=== PATIENT | female | born 1970 | race African-American/Black ===

== ENCOUNTER 2019-11-02 17:18 | Inpatient (IN) | payer MEDICAID, SELFPAY ==
[2019-11-02] VITALS (15 sets, daily range): BP systolic 149–266; BP diastolic 77–134; PULSE 57–94; RESP 10–23; TEMP 36.6–36.8; O2SAT 97–100; BMI 27.1
--- NOTE | ~2019-11-02 | US_ITS ---
EXAMINATION: US right upper quadrant DATE: 11/04/2019 14:18 INDICATION: Pancreatitis TECHNIQUE: Multiple grayscale and Doppler ultrasound images of the abdomen were obtained. COMPARISON: CT dated 11/02/2019 FINDINGS: The pancreatic head and body are normal in appearance. The pancreatic tail is not visualized. Liver has normal echogenicity and contour, with a smooth surface. No liver lesion identified. No intrahepat ic biliary duct dilation suspected. Portal venous flow was seen in the hepatopetal, normal direction and has normal Doppler waveform. The visualized proximal inferior vena cava is normal. The gallbladde r is normal in appearance. There is no cholelithiasis. The common bile duct measures 3 mm, which is normal. Sonographic Nathan sign was reported as negative by the fourth mate although patient was repo rtedly on analgesics which could decrease sensitivity. IMPRESSION: 1. Normal right upper quadrant ultrasound. Reviewed, dictated and finalized at location A.
--- NOTE | ~2019-11-02 | CT_ITS ---
EXAMINATION: CT abdomen pelvis w con DATE: 11/02/2019 19:14 INDICATION: Epigastric abdominal pain. TECHNIQUE: Computed tomography (CT) of the abdomen and pelvis was performed with 100 mL Omnipaque 350 intravenous contrast. Automated exposure control and iterative reconstruction technique were employe d. The dose-length product was 307.06 mGy-cm. COMPARISON: None. FINDINGS: The visualized portions of the lung bases demonstrate mild atelectasis. No pleural effusion . The heart size is normal. No pericardial effusion. The liver, gallbladder, spleen, adrenal glands, and kidneys are normal. There is fat stranding adjacent to the body of the pancreas, consistent with acute interstitial pancreatitis. There are no dilated loops of bowel. The appendix is normal. There i s a mildly enlarged gastrohepatic lymph node, likely reactive. There is no free intraperitoneal fluid . There is mild thoracolumbar spondylosis. IMPRESSION: 1. Acute interstitial pancreatitis. 2. Mild gastrohepatic lymphadenopathy, likely reactive. Reviewed, dictated and finalized at location A.
--- NOTE | 2019-11-02 18:11 | ED.ABDPAIN ---
HPI - Abdominal Pain General Chief Complaint: Abdominal Pain Stated Complaint: epigastric pain Time Seen by Provider: 11/02/19 17:31 Source: patient Mode of arrival: ambulatory Limitations: no limitations History of Present Illness HPI narrative: 49-year-old female with hypertension She reports that last Monday she ate a day old salad and has had abdominal pain since that time The abdominal pain is been severe enough that it caused her to stop taking all of her blood pressure medication and to take Tums and Pepcid AC instead She has had nausea but no vomiting no diarrhea and does tend to be constipated She does not have any urinary symptoms And there is no fever On arrival here her blood pressure is pretty high she is denying chest pain shortness of breath headache neurologic symptoms She said she does not smoke and rarely drinks Pain is aggravated every time she eats and radiates into her back MD elicited complaint: abdominal pain Onset (ago): day(s) Pain Consistency: constant Severity: moderate Quality: aching Radiation: epigastric Migration to: no migration Exacerbating factors: eating Relieving factors: nothing Associated symptoms: nausea Related Data Home Medications Medication Instructions Recorded Confirmed amlodipine 10 mg PO DAILY 11/02/19 atorvastatin 40 mg PO HS 11/02/19 calcium carbonate [Tums] 300 mg PO BID 11/02/19 famotidine [Pepcid AC] 10 mg PO DAILY 11/02/19 losartan 25 mg PO DAILY 11/02/19 metformin 500 mg PO BID 11/02/19 ondansetron 4 mg PO Q6H PRN 11/02/19 sitagliptin [Januvia] 100 mg PO DAILY 11/02/19 triamterene-hydrochlorothiazid 1 cap PO DAILY 11/02/19 Allergies Allergy/AdvReac Type Severity Reaction Status Date / Time latex Allergy Rash Verified 11/02/19 17:26 lisinopril Allergy Swelling Verified 11/02/19 17:26 Review of Systems Review of Systems: All systems reviewed & are unremarkable except as noted in HPI and below Constitutional: Constitutional: Denies chills, Denies fatigue, Denies fever(s), Denies headache(s) and Denies night sweats Eyes: Eyes: Denies change in vision, Denies loss of vision and Denies other visual disturbances ENT: Denies headache(s), Denies hoarseness, Denies epistaxis, Denies nasal congestion and Denies sore throat Cardiovascular: Cardiovascular: Denies chest pain, Denies leg edema, Denies palpitations and Denies dyspnea Respiratory: Respiratory: Denies cough, Denies dyspnea and Denies wheezing Gastrointestinal: Gastrointestinal: Reports no additional gastrointestinal complaints Genitourinary: Genitourinary: Denies hematuria, Denies urinary frequency and Denies dysuria Musculoskeletal: Musculoskeletal: Denies abnormal gait, Denies deformity, Denies joint swelling, Denies muscle weakness and Denies numbness Integumentary/Breasts: Skin/Breast: Denies rash, Denies unusual bruising and Denies wounds Neurologic: Denies abnormal gait, Denies headache(s), Denies focal weakness, Denies loss of vision and Denies numbness Psychiatric: Psychiatric: Reports no additional psychiatric complaints Endocrine: Endocrine: Denies fatigue and Denies palpitations Hematologic/Lymphatic: Hematologic/Lymphatic: Denies easy bleeding and Denies easy bruising Allergic/Immunologic: Allergic/Immunologic: Denies wheezing PMFSH Social History Social History Gender identity (if verbalized by the patient): Female Exam Const: General: healthy appearing, no acute distress and well developed Nutritional Appearance: well nourished Orientation/consciousness: patient oriented x3 (alert) and Other orientation findings (Alert) Limitations: no limitations HENMT: Head: normocephalic and atraumatic Ears: external ears normal General nose exam: No nasal discharge present Face and sinus: face symmetric Mouth: Yes tongue normal and Yes moist mucous membranes Throat: other (No exudate, no erythema) Eyes: Conjunctivae: conjunctivae normal Sclera: sclerae normal
--- NOTE | 2019-11-02 18:34 | ECG_ITS ---
Measurements Intervals [place] Rate: 55 P: 11 NE: 143 QRS: 52 QRSD: 75 T: 139 QT: 452 QTc: 433 Interpretive Statements SINUS BRADYCARDIA LEFT VENTRICULAR HYPERTROPHY AND ST-T CHANGE ST-T WAVE ABNORMALITY IN HIGH LATERAL LEADS- CONSIDER ISCHEMIA ABNORMAL ECG Electronically Signed On 11-02-2019 20:52:34 CDT by Christian Mercedes D.O.
[2019-11-02] MEDS: LACTATED RINGERS 1,000 ML 999 ML IV CONT ×2 (18:38→20:52)
[2019-11-02] MEDS: BELLADONNA ALK/PHENOB ELIX 10 ML, MAG HYDROX/ALUMINUM HYD/SIMETH 30 ML, LIDOCAINE HCL 2... PO (18:38)
[2019-11-02 18:40] LABS: Basophils Absolute Auto 0.1 K/mm3 (0.0-0.1); Basophils Percent Auto 0.5 % (0.2-1.2); Eosinophils Absolute Auto 0.5 K/mm3 (0-0.3); Eosinophils Percent Auto 3.9 % (0-4.4); Hematocrit 50.2 % (37.0-47.0); Hemoglobin 15.4 g/dL (12.0-15.0); Immature Granulocyte Absolute 0.02 K/mm3 (0.00-0.031); Immature Granulocyte Percent A 0.2 % (0-0.5); Lymphocytes Absolute Auto 5.43 K/mm3 (0.9-3.2); Lymphocytes Percent Auto 46.2 % (18.3-44.2); Mean Corpuscular HGB Conc 30.7 g/dl (32-36); Mean Corpuscular Volume 71.6 fl (80-100); Mean Platelet Volume 10.4 fl (7.4-10.4); Monocytes Absolute Auto 0.6 K/mm3 (0.1-0.6); Monocytes Percent Auto 4.7 % (2.6-8.5); Neutrophils Absolute Auto 5.2 K/mm3 (1.3-6.7); Neutrophils Percent Auto 44.5 % (45.5-73.1); Platelet Count Result 304 k/mm3 (150-375); Red Blood Count 7.01 M/mm3 (4.2-5.4); Red Cell Distribution Width 17.1 % (11.5-14.5); White Blood Count 11.8 K/mm3 (4.5-10.0)
[2019-11-02 18:52] LABS: Add Urine Microscopic? YES; Appearance Urine Clear (Clear); Bilirubin Urine Negative (Negative); Blood Urine Negative (Negative); Color Urine Yellow (Yellow); Glucose Urine UA Negative (Negative); Ketones Urine Negative (Negative); Leukocyte Esterase Ur Negative LEU/UL (Negative); Mucus Urine Rare /lpf; Nitrate Urine Negative (Negative); Protein Urine 1+ mg/dL (Negative); Specific Grav Ur 1.015 (1.001-1.035); Squamous Epithelial Cell Urine Occasional /hpf (Few); Urobilinogen Urine Negative mg/dL (<2.0); WBC Urine 0-3 /hpf
[2019-11-02 18:53] LABS: Alanine Aminotransferase 23 U/L (4-35); Albumin Level 4.4 g/dL (3.5-5.1); Alkaline Phosphatase 143 U/L (38-126); Anion Gap 7 mmol/L (8-16); Aspartate Amino Transferase 21 U/L (14-36); Bilirubin,Total 0.5 mg/dL (0.2-1.3); Blood Urea Nitrogen 14 mg/dL (7-17); Calcium 9.4 mg/dL (8.4-10.2); Carbon Dioxide 28 mmol/L (22-30); Chloride 104 mmol/L (98-107); Estimated CRCL calculation 65 ml/min; Estimated Glomerular Filt Rate > 60; Glucose 201 mg/dL (65-105); Lipase 664 U/L (23-300); Potassium 3.9 mmol/L (3.4-5.0); Sodium 139 mmol/L (137-145)
--- NOTE | 2019-11-02 18:56 | PC.NURSE ---
DISCUSSED LABETOLOL ORDER W/ ERP RYLEE DUE TO PT RESTING HR IN THE 50-60'S. RYLEE STATES THAT HE IS MORE CONCERNED WITH THE PRESSURE AND WANTS THE LABETOLOL GIVEN REGARDLESS.
[2019-11-02] MEDS: LABETALOL HCL INJ 100 MG/20 ML VIAL 20 MG IV PUSH ×2 (18:57→19:45)
[2019-11-02 19:05] LABS: Troponin I < 0.012 ng/mL (0.000-0.034)
--- NOTE | 2019-11-02 19:12 | PC.NURSE ---
PT IN RADIOLOGY, BEDSIDE REPORT TO RN CAT AT THIS TIME, SHE HAS ASSUMED PT CARE.
--- NOTE | 2019-11-02 19:13 | PC.NURSE ---
Assumed care of patient at this time. Patient just getting back from radiology. Patient report received from MODESTO Marcelino.
[2019-11-02] MEDS: LOSARTAN POTASSIUM 50 MG TABLET PO (19:18)
[2019-11-02] MEDS: hydrALAZINE HCL 20 MG/ML VIAL 10 MG IV PUSH (19:31)
[2019-11-02] MEDS: PANTOPRAZOLE SODIUM IV 40 MG VIAL IV PUSH (19:31)
--- NOTE | 2019-11-02 19:46 | PC.NURSE ---
vORB PER ERP give 20mg of labetalol IVP.
[2019-11-02] MEDS: niCARdipine 20 MG/200 ML 20 MG/200 ML BAG 50 MG IV CONT (20:52)
--- NOTE | 2019-11-02 20:55 | PM.IMHP ---
H&P: HPI History of Present Illness Date/Time: 11/02/19 20:55 Chief complaint: severe hypertension, acute pancreatitis Narrative: This is a pleasant 49 year old female with known prediabetes who has been on Januvia for the past 8 months and presented to the hospital with a complaint of epigastric pain and nausea for about 1 week now. She describes last eating food yesterday which led to her immediately getting nauseated and vomiting. Her epigastric pain radiates towards her back. She denies any fever, chills, cough, chest pain, dysuria, hematuria, diarrhea, or rectal bleeding. The patient has not been able to take her home antihypertensives. She was evaluated in the ER and found to have interstitial pancreatitis. She also was found to have severely elevated blood pressure and despite several bolus doses of IV antihypertensives has continued to have elevated blood pressure. Currently she denies any blurry vision, shortness of breath, chest pain, nausea, or dizziness. Demonstrator Knitting, Dr. Peterson has been consulted. Review of Systems Review of Systems: All systems reviewed & are unremarkable except as noted in HPI and below PMFSH Past Medical History Medical History (Updated 11/03/19 @ 05:52 by Werner Ashton MD) HTN (hypertension) with goal to be determined Prediabetes Surgical History Surgical History (Updated 11/02/19 @ 21:03 by Werner Ashton MD) Previous section Family History Family History (Updated 11/02/19 @ 23:22 by Evelyn Borrero RN) Father Hypertension Cerebrovascular accident Diabetes mellitus Mother Diabetes mellitus Social History Social History Years smoked: 32 Smoking status: Current every day smoker Tobacco type: cigarettes Alcohol intake: never Substance use: never Substance use type: does not use Gender identity (if verbalized by the patient): Female Spiritual care concerns: No Meds Home Medications and Allergies Home Medications Medication Instructions Recorded Confirmed Type amlodipine 10 mg PO DAILY 11/02/19 11/02/19 History atorvastatin 40 mg PO HS 11/02/19 11/02/19 History calcium carbonate [Tums] 300 mg PO BID PRN 11/02/19 11/02/19 History famotidine [Pepcid AC] 10 mg PO DAILY 11/02/19 11/02/19 History losartan 25 mg PO DAILY 11/02/19 11/02/19 History metformin 500 mg PO BID 11/02/19 11/02/19 History ondansetron 4 mg PO Q6H PRN 11/02/19 11/02/19 History sitagliptin [Januvia] 100 mg PO DAILY 11/02/19 11/02/19 History triamterene-hydrochlorothiazid 1 cap PO DAILY 11/02/19 11/02/19 History Allergies Allergy/AdvReac Type Severity Reaction Status Date / Time latex Allergy Rash Verified 11/02/19 17:26 lisinopril Allergy Swelling Verified 11/02/19 17:26 Vital Signs Vital Signs - 24 hr 11/02/19 17:21 11/02/19 18:41 11/02/19 19:01 Temperature 36.8 C Pulse Rate 65 57 L 62 Respiratory Rate 18 10 L 17 Blood Pressure 244/118 H 266/134 H 234/114 H Pulse Oximetry 100 100 100 11/02/19 20:44 11/02/19 20:52 Temperature Pulse Rate 80 72 Respiratory Rate 20 Blood Pressure 219/102 H 215/99 H Pulse Oximetry 97 Exam Const: General: cooperative, no acute distress, alert and awake Nutritional Appearance: well nourished Orientation/consciousness: patient oriented x3 HENMT: Head: normal to inspection General nose exam: Normal external nose present Face and sinus: normal facial exam Mouth: Yes Normal oral and palatal mucosa present and Yes oropharynx normal Eyes: Pupils: Equal, round and reactive pupils present EOM: EOMs intact bilaterally Neck: Neck: supple and no JVD Thyroid: thyroid normal Lymphatic: lymphadenopathy not noted Resp: Effort & Inspection: normal respiratory effort Auscultation: clear to auscultation bilaterally Cardio: Rate: regular rate Rhythm: regular rhythm Heart sounds: no murmurs GI: Inspection: normal to inspection GI Palp: Yes abdominal tenderness (epigastric pain w/ palpation++
--- NOTE | 2019-11-02 21:45 | ADMGEN ---
This patient, Zeyad Mcneil, was admitted to Intensive Care Unit-7. Patient/family oriented to hospital policies and general routines including ID bracelet, bed and alarms, visiting hours, pain management, procedures, bathroom and other care routines, personal items, smoking policy, room service/diet, and visiting hours. Valuables list has been completed. Information on how to activate the Rapid Response Team has been discussed. Patient/Family are encouraged to report perceived risks to care and to ask questions if they do not understand what they are told or what they should do.
[2019-11-02] MEDS: FAMOTIDINE 20 MG/2 ML VIAL IV PUSH (22:26)
[2019-11-02] MEDS: MORPHINE SULFATE 2 MG/ML INJ IV PUSH (22:27)
[2019-11-02] MEDS: SODIUM CHLORIDE 0.9% IV 1,000 ML 125 ML IV CONT (23:02)
[2019-11-03] VITALS (21 sets, daily range): BP systolic 148–179; BP diastolic 73–96; PULSE 57–74; RESP 12–24; TEMP 36.5–37.1; O2SAT 96–100
[2019-11-03 04:13] LABS: Glucose Point of Care 245 (65-105)
[2019-11-03] MEDS: INSULIN ASPART (*BKC) 100 UNITS/ML SUB-Q ×2 (04:18→16:57)
[2019-11-03 04:20] LABS: Hemoglobin A1C 8.9 % (<5.7)
[2019-11-03 04:33] LABS: Basophils Absolute Auto 0.1 K/mm3 (0.0-0.1); Basophils Percent Auto 0.4 % (0.2-1.2); Eosinophils Absolute Auto 0.3 K/mm3 (0-0.3); Eosinophils Percent Auto 2.4 % (0-4.4); Hematocrit 43.7 % (37.0-47.0); Hemoglobin 13.7 g/dL (12.0-15.0); Immature Granulocyte Absolute 0.04 K/mm3 (0.00-0.031); Immature Granulocyte Percent A 0.3 % (0-0.5); Lymphocytes Absolute Auto 5.98 K/mm3 (0.9-3.2); Lymphocytes Percent Auto 44.5 % (18.3-44.2); Mean Corpuscular HGB Conc 31.4 g/dl (32-36); Mean Corpuscular Hemoglobin 22.3 pg (26-34); Mean Corpuscular Volume 71.2 fl (80-100); Mean Platelet Volume 10.5 fl (7.4-10.4); Monocytes Absolute Auto 0.6 K/mm3 (0.1-0.6); Monocytes Percent Auto 4.3 % (2.6-8.5); Neutrophils Absolute Auto 6.5 K/mm3 (1.3-6.7); Neutrophils Percent Auto 48.1 % (45.5-73.1); Platelet Count Result 267 k/mm3 (150-375); Red Blood Count 6.14 M/mm3 (4.2-5.4); Red Cell Distribution Width 14.9 % (11.5-14.5); White Blood Count 13.4 K/mm3 (4.5-10.0)
[2019-11-03 04:46] LABS: Anion Gap 7 mmol/L (8-16); Blood Urea Nitrogen 8 mg/dL (7-17); Calcium 8.8 mg/dL (8.4-10.2); Carbon Dioxide 28 mmol/L (22-30); Chloride 102 mmol/L (98-107); Estimated CRCL calculation 80 ml/min; Estimated Glomerular Filt Rate > 60; Glucose 236 mg/dL (65-105); Lipase 510 U/L (23-300); Potassium 3.5 mmol/L (3.4-5.0); Sodium 137 mmol/L (137-145)
[2019-11-03 05:00] LABS: Atypical Lymphocytes Present; Platelet Estimate Adequate (Adequate)
[2019-11-03] MEDS: SODIUM CHLORIDE 0.9% IV 1,000 ML 125 ML IV CONT ×2 (07:43→21:57)
[2019-11-03 08:16] LABS: Cholesterol 183 mg/dL (0-200); HDL Direct 29 mg/dL; Triglycerides 147 mg/dL (<150)
[2019-11-03 08:27] LABS: LDL Cholesterol Direct 108 mg/dL
[2019-11-03] MEDS: amLODIPine BESYLATE 5 MG TABLET 10 MG PO (08:29)
[2019-11-03] MEDS: SODIUM CHLORIDE 0.9% IV 1,000 ML 999 ML IV CONT (08:30)
[2019-11-03] MEDS: FAMOTIDINE 20 MG/2 ML VIAL IV PUSH ×2 (08:32→20:06)
--- NOTE | 2019-11-03 09:09 | WPDCNINT ---
Assessment and Plan Assessment and plan (1) Hypertensive urgency: Code(s): I16.0 - Hypertensive urgency Status: Acute Assessment and Plan: patient was admitted for hypertensive emergency, presented with systolic blood pressures greater than 260s. Started on nicardipine infusion. - Currently off nicardipine infusion. - Patient has been restarted on amlodipine, if blood pressures remain elevated will add losartan. Will hold Maxzide for now - patient stated that when she takes all 3 medications she passed out a couple of months ago and was in the ER and was instructed only to take the amlodipine. (2) Acute pancreatitis: Qualifiers: Acute pancreatitis complication: no infection or necrosis Pancreatitis type: unspecified pancreatitis type Qualified Code(s): K85.90 - Acute pancreatitis without necrosis or infection, unspecified Code(s): K85.90 - Acute pancreatitis without necrosis or infection, unspecified Status: Acute Assessment and Plan: Acute pancreatitis likely related to Januvia, patient does not drink any alcohol - check triglycerides - will give additional IV fluid bolus - may start clear liquid diet (3) Diabetes mellitus: Qualifiers: Diabetes mellitus type: type 2 Diabetes mellitus penitentiary insulin use: without groundskeeper use Diabetes mellitus complication status: without complication Qualified Code(s): E11.9 - Type 2 diabetes mellitus without complications Code(s): E11.9 - Type 2 diabetes mellitus without complications Status: Chronic Assessment and Plan: hemoglobin A1c 8.9, - hold Januvia for now - continue Accu-Cheks and sliding scale insulin Additional Plan DVT prophylaxis: SCDs stress ulcer prophylaxis: famotidine discussed with patient and updated her with her condition and plan of care. Code status: Full code critical care time spent: 42 minutes Due to a high probability of clinically significant, life threatening deterioration, the patient required my highest level of preparedness to intervene emergently and I personally spent this critical care time directly and personally managing the patient. This critical care time included obtaining a history; examining the patient; pulse oximetry; ordering and review of studies; arranging urgent treatment with development of a management plan; evaluation of patient's response to treatment; frequent reassessment; and discussions with other providers. It was exclusive of separately billable procedures and treating other patients and teaching time. Please see Assessment and Plan section and the rest of the note for further information on patient assessment and treatment [facility] Consult Note Consult date: 11/03/19 Time Seen: 07:04 Reason for consult: acute pancreatitis, hypertensive urgency HPI: Zeyad Mcneil is a 49 year old female with past medical history of hypertension, diabetes on Januvia presented the ED with complains of epigastric pain few for 1 week. in the ER patient's blood pressures were 266/134. Patient received hydralazine in the ER but was also started on nicardipine infusion. CT scan of the abdomen and pelvis showed acute pancreatitis. Patient was given 2 L IV fluids in the ER and transfer the ICU for further management 11/20/2019: Patient seen and examined the ICU this morning. Upon further questioning patient has been stating that she has not been taking her blood pressure medications except amlodipine the last 2 months as she was in the ER which he took all the medications and passed out. She was told not to take all the medications for her blood pressures. She stated she has been having epigastric pain upon eating for the last 1 week. Patient has had decreased p.o. intake Due to nausea. She did eat on the day of admission and was able to keep down her food without nausea vomiting. hemoglobin A1c was 8.9 this admission, lipase of 510 ( 664 on admission). [place]
[2019-11-03] MEDS: LOSARTAN POTASSIUM 25 MG TABLET PO (10:21)
[2019-11-03 11:12] LABS: Glucose Point of Care 162 (65-105)
[2019-11-03] MEDS: TRIAMTERENE 37.5 MG/HCTZ 25 MG (MAXZIDE) TABLET 1 TAB PO (12:34)
[2019-11-03] MEDS: POTASSIUM CHLORIDE 20 MEQ TABLET 40 MEQ PO (15:20)
[2019-11-03] MEDS: hydrALAZINE HCL 20 MG/ML VIAL 10 MG IV PUSH (16:09)
--- NOTE | 2019-11-03 16:16 | PM.IMPN ---
Progress Note: A&P Assessment and Plan (1) Hypertensive urgency: Code(s): I16.0 - Hypertensive urgency Status: Acute Assessment and Plan: secondary to stopping her home antihypertensives due to acute pancreatitis. initially patient was on nicardipine drip but with lessening pain and increasing bowel sounds was placed on her oral antihypertensives. Calcium channel damian, ARB, and diuretic (2) Acute pancreatitis: Qualifiers: Acute pancreatitis complication: no infection or necrosis Pancreatitis type: unspecified pancreatitis type Qualified Code(s): K85.90 - Acute pancreatitis without necrosis or infection, unspecified Code(s): K85.90 - Acute pancreatitis without necrosis or infection, unspecified Status: Acute Assessment and Plan: may be secondary to Januvia use. patient tolerating clear liquids now. Lipid panel okay and will get sonogram right upper quadrant in a.m. (3) Dehydration: Code(s): E86.0 - Dehydration Status: Acute Assessment and Plan: Continue IV hydration K 3.5 sober replace (4) Diabetes mellitus: Qualifiers: Diabetes mellitus type: type 2 Diabetes mellitus medical terminologist insulin use: without long-term use Diabetes mellitus complication status: without complication Qualified Code(s): E11.9 - Type 2 diabetes mellitus without complications Code(s): E11.9 - Type 2 diabetes mellitus without complications Status: Chronic Assessment and Plan: accuchecks, sliding scale. A1c 8.9 and will continue metformin on discharge but hold Januvia (5) DVT prophylaxis: Code(s): Z29.9 - Encounter for prophylactic measures, unspecified Status: Acute Assessment and Plan: Lovenox Subjective Date/time seen: 11/03/19 16:16 Interval history: date of visit 11/02. 49-year-old hypertensive type 2 diabetic presented with nausea vomiting abdominal pain found to have pancreatitis on CT scan. She had not been taking her antihypertensive medication for about 1 week and pressure was markedly elevated. this a.m. she feels much better with minimal pain. Exam Narrative: Exam Narrative: Blood pressure 156/82 pulse 66 regular afebrile pupil equal reactive to light sclera anicteric lungs clear CV regular rate rhythm abdomen soft minimal epigastric tenderness bowel sounds present but decrease extremities without edema distal pulses are 2+ neuro alert pleasant cooperative no focal deficit Objective Data Vital Signs Vital Signs: Vital Signs - 24 hr 11/02/19 17:21 11/02/19 18:41 11/02/19 19:01 Temperature 36.8 C Pulse Rate 65 57 L 62 Respiratory Rate 18 10 L 17 Blood Pressure 244/118 H 266/134 H 234/114 H Pulse Oximetry 100 100 100 11/02/19 20:44 11/02/19 20:47 11/02/19 20:52 Temperature 36.6 C Pulse Rate 80 94 72 Respiratory Rate 20 22 H Blood Pressure 219/102 H 177/95 H 215/99 H Pulse Oximetry 97 99 11/02/19 21:11 11/02/19 21:31 11/02/19 21:50 Temperature 36.6 C Pulse Rate 94 88 88 Respiratory Rate 19 20 Blood Pressure 164/78 H 177/95 H Pulse Oximetry 100 100 11/02/19 22:00 11/02/19 22:24 11/02/19 22:31 Temperature 36.7 C Pulse Rate 76 90 76 Respiratory Rate 19 18 Blood Pressure 167/94 H 171/87 H Pulse Oximetry 100 100 11/02/19 22:46 11/02/19 23:31 11/02/19 23:46 Temperature Pulse Rate 76 69 69 Respiratory Rate 23 H 19 18 Blood Pressure 149/77 H 174/91 H 167/90 H Pulse Oximetry 100 100 99 11/03/19 00:00 11/03/19 01:00 11/03/19 01:01 Temperature Pulse Rate 72 64 67 Respiratory Rate 15 Blood Pressure 155/73 H 159/78 H 159/78 H Pulse Oximetry 96 11/03/19 02:00 11/03/19 04:00 11/03/19 04:01 Temperature 36.7 C Pulse Rate 59 L 68 66 Respiratory Rate 16 17 Blood Pressure 165/84 H 158/85 H Pulse Oximetry 100 99 11/03/19 04:31 11/03/19 05:32 11/03/19 06:00 Temperature Pulse Rate 59 L 64 59 L Respiratory Rate 17 15 Blood
--- NOTE | 2019-11-03 16:21 | PC.NURSE ---
This patient, Zeyad Mcneil, was transferred to [ [address] [place] [address]] on 11/03/19 at 1621. Personal belongings sent with patient. Belongings list checked and signed with receiving [ tila christopher,dentures phone belongings bag]. Report given to [rober bryant ]. Appropriate documentation sent with patient.
--- NOTE | 2019-11-03 16:26 | PC.NURSE ---
This patient, Zeyad Mcneil, was received from IMU on 11/03/19 at 1626. Personal belongings list checked and signed. Patient/family oriented to unit policies and routines
[2019-11-03 16:39] LABS: Glucose Point of Care 327 (65-105)
[2019-11-03] MEDS: ENOXAPARIN 40 MG/0.4 ML SYRINGE SUB-Q (20:07)
[2019-11-03 22:12] LABS: Glucose Point of Care 106 (65-105)
[2019-11-04 02:46] VITALS: BP 152/87; PULSE 77; RESP 12; TEMP 36.3; O2SAT 97
[2019-11-04 04:48] VITALS: BP 156/88; PULSE 74; RESP 12; TEMP 36.7; O2SAT 99
[2019-11-04 05:26] LABS: Glucose Point of Care 171 (65-105)
[2019-11-04] MEDS: SODIUM CHLORIDE 0.9% IV 1,000 ML 125 ML IV CONT (06:21)
[2019-11-04 07:05] LABS: Alanine Aminotransferase 16 U/L (4-35); Albumin Level 3.9 g/dL (3.5-5.1); Alkaline Phosphatase 107 U/L (38-126); Anion Gap 6 mmol/L (8-16); Aspartate Amino Transferase 21 U/L (14-36); Bilirubin,Total 0.7 mg/dL (0.2-1.3); Blood Urea Nitrogen 8 mg/dL (7-17); Calcium 8.8 mg/dL (8.4-10.2); Carbon Dioxide 23 mmol/L (22-30); Chloride 108 mmol/L (98-107); Estimated CRCL calculation 71 ml/min; Estimated Glomerular Filt Rate > 60; Glucose 167 mg/dL (65-105); Lipase 154 U/L (23-300); Magnesium 1.7 mg/dL (1.6-2.3); Phosphorus 3.4 mg/dL (2.5-4.5); Potassium 4.1 mmol/L (3.4-5.0); Sodium 137 mmol/L (137-145)
[2019-11-04 07:52] LABS: Basophils Absolute Auto 0.1 K/mm3 (0.0-0.1); Basophils Percent Auto 0.5 % (0.2-1.2); Eosinophils Absolute Auto 0.4 K/mm3 (0-0.3); Eosinophils Percent Auto 4.3 % (0-4.4); Hematocrit 44.6 % (37.0-47.0); Hemoglobin 13.8 g/dL (12.0-15.0); Immature Granulocyte Absolute 0.02 K/mm3 (0.00-0.031); Immature Granulocyte Percent A 0.2 % (0-0.5); Lymphocytes Absolute Auto 4.62 K/mm3 (0.9-3.2); Lymphocytes Percent Auto 50.5 % (18.3-44.2); Mean Corpuscular HGB Conc 30.9 g/dl (32-36); Mean Corpuscular Hemoglobin 22.4 pg (26-34); Mean Corpuscular Volume 72.3 fl (80-100); Mean Platelet Volume 10.4 fl (7.4-10.4); Monocytes Absolute Auto 0.4 K/mm3 (0.1-0.6); Monocytes Percent Auto 4.8 % (2.6-8.5); Neutrophils Absolute Auto 3.6 K/mm3 (1.3-6.7); Neutrophils Percent Auto 39.7 % (45.5-73.1); Platelet Count Result 256 k/mm3 (150-375); Red Blood Count 6.17 M/mm3 (4.2-5.4); Red Cell Distribution Width 15.3 % (11.5-14.5); White Blood Count 9.2 K/mm3 (4.5-10.0)
[2019-11-04] MEDS: LOSARTAN POTASSIUM 25 MG TABLET PO ×2 (08:23→16:19)
[2019-11-04] MEDS: FAMOTIDINE 20 MG/2 ML VIAL IV PUSH (08:23)
[2019-11-04] MEDS: amLODIPine BESYLATE 5 MG TABLET 10 MG PO (08:23)
[2019-11-04] MEDS: TRIAMTERENE 37.5 MG/HCTZ 25 MG (MAXZIDE) TABLET 1 TAB PO (08:23)
[2019-11-04 08:24] LABS: Platelet Estimate Adequate (Adequate); Target Cells 1+ (NORMAL)
[2019-11-04] MEDS: SODIUM CHLORIDE 0.9% IV 1,000 ML 50 ML IV CONT (08:28)
[2019-11-04 08:32] LABS: Glucose Point of Care 188 (65-105)
[2019-11-04 08:49] VITALS: BP 176/97; PULSE 60; RESP 18; TEMP 36.1; O2SAT 100
[2019-11-04 12:00] VITALS: BP 176/94; PULSE 60; RESP 18; TEMP 36; O2SAT 100
[2019-11-04] MEDS: hydrALAZINE HCL 20 MG/ML VIAL 10 MG IV PUSH (12:21)
[2019-11-04 12:34] LABS: Glucose Point of Care 133 (65-105)
[2019-11-04 15:10] VITALS: BP 185/89
[2019-11-04 16:39] LABS: Glucose Point of Care 233 (65-105)
--- NOTE | 2019-11-07 08:41 | PM.DS ---
DS: Admitting Diagnosis Admitting Diagnosis Admitting Diagnosis: severe hypertension, acute pancreatitis DS: Discharge Diagnosis Discharge Diagnosis (1) Hypertensive urgency: Code(s): I16.0 - Hypertensive urgency Status: Acute Assessment and Plan: secondary to stopping her home antihypertensives due to acute pancreatitis. initially patient was on nicardipine drip but with lessening pain and increasing bowel sounds was placed on her oral antihypertensives. Calcium channel damian, ARB, and diuretic. Still some elevated at discharge and will follow up with primary soon. increased losartan to 50mg qd (2) Acute pancreatitis: Qualifiers: Acute pancreatitis complication: no infection or necrosis Pancreatitis type: unspecified pancreatitis type Qualified Code(s): K85.90 - Acute pancreatitis without necrosis or infection, unspecified Code(s): K85.90 - Acute pancreatitis without necrosis or infection, unspecified Status: Acute Assessment and Plan: may be secondary to Januvia use.. Lipid panel okay and sonogram right upper quadrant no cholelethiasis She will hold Januvia. (3) Dehydration: Code(s): E86.0 - Dehydration Status: Acute Assessment and Plan: Hydrated aggressively until taking fluids well (4) Diabetes mellitus: Qualifiers: Diabetes mellitus type: type 2 Diabetes mellitus fpc insulin use: without terminal superintendent use Diabetes mellitus complication status: without complication Qualified Code(s): E11.9 - Type 2 diabetes mellitus without complications Code(s): E11.9 - Type 2 diabetes mellitus without complications Status: Chronic Assessment and Plan: accuchecks, sliding scale. A1c 8.9 and will continue metformin on discharge and increase to 1000 mb bid, but hold Januvia DS: Summary Hospital Course Hospital Course: 49 year hypertensive diabetic admitted with abdominal pain and found to have pancreatitis. She was not taking her oral antihypertensives for several days. With hydration lipase fell on was 153 rehab discharge. She was taking a regular diet without any pain. Blood pressure still elevated some and her losartan was increased to 50 daily. Pancreatitis felt secondary to Januvia and it was held and the metformin increased to 1000 mg b.i.d.. Follow-up with primary care within the next 2 weeks Time Spent with Patient Time attestation: Total time spent providing and/or coordinating discharge services:35 minutes Exam Narrative: Exam Narrative: condition on discharge blood pressure 176/92 pulse 60 saturating 95% on room air afebrile lungs clear CV regular rate rhythm abdomen soft nontender no masses extremities without edema distal pulses are 2+ she was up about taking a regular diet with no abdominal pain feeling much better and able to be discharged Discharge Plan Discharge Attending physician on discharge: Roberto Gandara Consulting providers: Jeramie Díaz ; Kenn Peterson Discharging Clinician: Roberto Gandara Patient Disposition: Home, Self-Care Activity: as tolerated Diet: diabetic and low sodium Patient Instructions: Antibiotic Form, Enoxaparin (By injection), How to Stop Smoking (DC), Pancreatitis (DC), Chronic Hypertension (DC), Hypertensive Crisis (DC), Ultrasound (GEN) Stand Alone Forms: General Discharge Information, Work/School Release IP Follow-up/Referrals: PHYSICIAN,RN PARALEGAL [Primary Care Provider] - 3 Weeks Discharge Medications: New losartan 25 mg Tablet 50 mg PO DAILY Qty: 30 RF: 0 metformin 1,000 mg tablet 1,000 mg PO BID Qty: 60 RF: 0 Continued atorvastatin 40 mg Tablet 40 mg PO HS RF: 0 famotidine [Pepcid AC] 10 mg Tablet 10 mg PO DAILY RF: 0 calcium carbonate [Tums] 300 mg (750 mg) Tablet,Chewable 300 mg PO BID PRN (Reason: Heartburn) RF: 0 ondansetron 4 mg Tablet,Disintegrating 4 mg PO Q6H PRN (Roland
== END 2019-11-04 17:21 | disposition home or self-care (01) | DRG 199 ==
LOC: ANHED 21:11 → ANHICU 21:28 → ANH3MED 11-03 21:19 → ANHICU 11-07 10:00
PROVIDERS: Internal Medicine; Admitting Provider Family Medicine; Emergency Provider Emergency Medicine; Visit Provider Internal Medicine
DX: I16.0 Hypertensive urgency (principal); K85.30 Drug induced acute pancreatitis without necrosis or infection; T38.3X5A Adverse effect of insulin and oral hypoglycemic [antidiabetic] drugs, initial encounter; I10 Essential (primary) hypertension; E86.0 Dehydration; E11.9 Type 2 diabetes mellitus without complications; F17.210 Nicotine dependence, cigarettes, uncomplicated; Z28.21 Immunization not carried out because of patient refusal; Z79.84 Long term (current) use of oral hypoglycemic drugs; Z79.899 Other long term (current) drug therapy
CPT/HCPCS: 36415; 74177; 76705; 80048; 80053; 80061; 81001; 83036; 83690; 83735; 84100; 84484; 85025; 93005; 96361; 96374; 96375; 96376; 99285; A9270; C9113; J0131; J0360; J1650; J1815; J2270; J7030; J7120; Q9967